=== PATIENT | male | born 1960 | race Caucasian/White ===

== ENCOUNTER 2017-07-16 14:27 | Outpatient (CLI) | payer OTHER ==
[2017-07-16 14:41] LABS: BASOPHILS % 0.6 (0.0-1.5); EOSINOPHILS % 4.5 % (0.0-6.8); MEAN CORPUSCULAR HEMOGLOBIN 30.7 pg (28.0-34.0); MEAN CORPUSCULAR VOLUME 91.5 fl (80.0-100.0); MONOCYTES % 4.5 % (0.0-11.0); NEUTROPHILS # 6.6 # k/uL (1.4-7.7)
--- NOTE | 2017-07-16 17:02 | Diagnostic Imaging Report ---
[facility] [id number] [facility] [address] [address] Report Submission Date: Jul 16, 2017 2:58:25 PM CDT Patient Study Name: JASMYN OROURKE Date: Jul 16, 2017 2:42:56 PM CDT Modality Type: CR Gender: M Description: CHEST : 58 Institution: [facility] Physician: PONCHO LIVINGSTON Examination: PA and lateral chest. History: Evaluate lung samson. Comparison exam: None provided Findings: PA lateral chest demonstrate a normal cardiac and mediastinal silhouette. No focal infiltrate. No blunting of the costophrenic margins. Osseous structures are appropriate for age. Impression: No acute pulmonary process. Electronically signed on Jul 16, 2017 2:58:25 PM CDT by: Guevara WESLEY
== END 2017-07-16 14:30 ==
LOC: RAD 14:27
PROVIDERS: ATTEND Physician Assistant
DX: R05 Cough (principal)
CPT/HCPCS: 36415; 71020; 85025